=== PATIENT | female | born 1965 | race Caucasian/White ===

== ENCOUNTER 2016-11-19 10:00 | Inpatient (IN) | payer MEDICARE, OTHER ==
--- NOTE | ~2016-11-19 | PN ---
Unit #: [id number] #: [id number] Patient: GRAYSON WHEELER [id number] [facility] [address] [place] [address] [id number] MR#: [id number] NAME: GRAYSON WHEELER. ROOM: P211 Age: 51 Sex: F Admission Date: 11/19/2016 : 1965 Attending Physician: Ivan Ball M.D. Admitting Physician: Ivan Ball M.D. Primary Care Physician: Primary Care Physician Luanne CONTRERAS NOTES DATE 11/21/2016 DISCUSSION The patient continues to complain of significant symptoms of opioid withdrawal complaining that she "vomited up breakfast this morning." She is also complaining of poor sleep but I have spoken with the patient regarding the fact that she slept much of the day yesterday and that this is probably why she slept poorly last evening. Sleep hygiene has been discussed with her. Dictated by... Ivan Ball M.D. CB/linsey TD: 11/21/2016 10:58 JOB #: [id number] LENCHO CONTRERAS NOTES Page 1 of 1 X Ivan Ball MD PROGRESS NOTE
--- NOTE | ~2016-11-19 | PA ---
Unit #: [id number] #: [id number] Patient: GRAYSON WHEELER [id number] [place] [address] [id number] I MR#: [id number] NAME: GRAYSON WHEELER. ROOM: P211 Age: 51 Sex: F Admission Date: 11/19/2016 : 1965 Date of Assessment: 11/20/2016 Attending Physician: Ivan Ball M.D. Admitting Physician: Ivan Ball M.D. Primary Care Physician: Primary Care Physician No PSYCHIATRIC ASSESSMENT IDENTIFYING INFORMATION The patient is a 51-year-old white female admitted with a history of opioid dependence. CHIEF COMPLAINT None given INFORMANT Chart, the patient cannot be aroused for interview. HISTORY OF PRESENT ILLNESS The patient is a 51-year-old white female with a history of opioid dependence. The patient reports that she has been snorting heroin "every 15 minutes for three days." The patient reported that she had not eaten or slept in three days at time of admission. She also admits to cannabis use. The patient was admitted with a COW score of 18 on 11/19. The patient has complained of low energy, hopelessness and helplessness. She was denying any suicidal ideation at the time of admission. The patient today is sleeping soundly and cannot be aroused for interview. PAST PSYCHIATRIC HISTORY None reported. PAST MEDICAL HISTORY The patient recently underwent ankle surgery. MEDICATIONS None. ALLERGIES Penicillin, morphine, tramadol, ibuprofen. FAMILY HISTORY Not obtained. SOCIAL HISTORY The patient's substance use history is described previously. MENTAL STATUS EXAMINATION At this time reveals the patient to be a thin, soundly sleeping white female who cannot be aroused for interview in spite of multiple attempts to do so the patient's assets to be assessed. Liabilities lack of resources. Unit #: [id number] #: [id number] Patient: GRAYSON WHEELER DIAGNOSTIC IMPRESSION 1. Opioid use disorder 2. Cannabis use disorder PSYCHIATRIC PLAN/TREATMENT GOALS The patient remains hospitalized for safety and stabilization. A routine detoxification protocol for opioids has been initiated. The patient will participate in appropriate stern and milieu activities. ESTIMATED LENGTH OF STAY Three to five days with followup to take place through the auspices of [facility]. Dictated by... Ivan Ball M.D. BRUCE/luisal TD: 11/21/2016 01:40 JOB #: [id number] PSYCHIATRIC ASSESSMENT Page 1 of 1 X Ivan Ball MD PSYCHIATRIC ASSESSMENT
--- NOTE | ~2016-11-19 | HP ---
Unit #: [id number] #: [id number] Patient: GRAYSON WHEELER [id number] [place] [address] [id number] I MR#: [id number] NAME: GRAYSON WHEELER. ROOM: P211 Age: 51 Sex: F Admission Date: 11/19/2016 : 1965 Attending Physician: Ivan Ball M.D. Admitting Physician: Ivan Ball M.D. Primary Care Physician: Primary Care Physician No HISTORY AND PHYSICAL HISTORY OF PRESENT ILLNESS The patient is a 51-year-old female admitted to [address] [place] [address] on 11/19/2016 to detox from heroin. PAST MEDICAL HISTORY The patient is hard of hearing and wears a hearing aid. PAST SURGICAL HISTORY 1. Hysterectomy 2. Cholecystectomy 3. Right foot 4. Cochlear implant. SOCIAL HISTORY The patient is disabled. She smokes 1 1/2 packs of cigarettes daily and uses heroin, methamphetamines and spice on a daily basis. FAMILY MEDICAL HISTORY Noncontributory. ALLERGIES Penicillin, morphine, ibuprofen and tramadol REVIEW OF SYSTEMS CONSTITUTIONAL: No fever or chills. HEENT: Denies any sore throat, ear pain or runny nose. CARDIOVASCULAR: Denies chest pain, irregular heart rhythm or palpitations. CHEST: Denies shortness of breath or cough. No hemoptysis. GASTROINTESTINAL: Denies nausea, vomiting, diarrhea or chronic constipation. ENDOCRINE: Denies history of increased thirst or urination. No recent significant weight loss or gain. GENITOURINARY: Denies dysuria, frequency, or hematuria. SKIN: Denies any rashes. HEMATOLOGIC: Denies history of increased bleeding or bruising. MUSCULOSKELETAL: Denies any hot, swollen joints. No generalized muscle pain. NEUROLOGIC: Denies problems with vision or speech. No frequent, severe headaches. No numbness, tingling or weakness in any extremities. Denies loss of bladder or bowel control. PHYSICAL EXAM GENERAL: She is awake, alert and oriented in no acute distress. Unit #: [id number] #: [id number] Patient: GRAYSON WHEELER VITAL SIGNS: Temperature 98.4, heart rate 92, respiration 16, blood pressure 117/78. HEIGHT: 5'11". WEIGHT: 95 pounds. SKIN: Warm and dry without rash or lesion. HEENT: Normocephalic. TMs not viewed. Oral and nasal passages clear. Conjunctivae clear. PERRLA. EOMs intact. NECK: Supple without lymphadenopathy or thyromegaly. HEART: Regular rate and rhythm without murmur. LUNGS: Clear. ABDOMEN: Soft, nontender. : Not done. EXTREMITIES: No evidence of cyanosis, clubbing or edema. Moves all without focal deficit. NEUROLOGICAL: Grossly within normal limits. Cranial Nerves: II: Visual burgos are intact. III, IV AND : Extraocular movements are intact. Pupils are equal, round and reactive to light. V: Facial sensation is grossly normal. VII: Facial movements and expression are normal. VIII: Auditory acuity grossly intact. IX, X: Uvula is midline. Phonation is normal. XI: Patient shrugs shoulders and turns head normally. XII: Tongue protrudes in the midline. Sensory and Motor Function: Sensory and motor sensation is grossly normal. Motor: moves all extremities well. IMPRESSION 1. Psychiatric admission. 2. Hard of hearing. 3. Polysubstance abuse. RECOMMENDATIONS Psychiatric per psychiatrist. MEDICAL: No contraindication to participate in facility activities. MEDICAL PROGNOSIS Good. MEDICAL CONDITION Stable. Dictated by... Gerda Jackson/linsey TD: 11/21/2016 03:42 JOB #: [id number] Unit #: [id number] #: [id number] Patient: GRAYSON WHEELER HISTORY AND PHYSICAL Page 1 of 1 X PENNIE AMADOR APRN HISTORY AND PHYSICAL
--- NOTE | ~2016-11-19 | PN ---
Unit #: [id number] #: [id number] Patient: GRAYSON WHEELER [id number] [facility] [address] [place] [address] [id number] I MR#: [id number] NAME: GRAYSON WHEELER. ROOM: P211 Age: 51 Sex: F Admission Date: 11/19/2016 : 1965 Attending Physician: Ivan Ball M.D. Admitting Physician: Ivan Ball M.D. Primary Care Physician: Primary Care Physician Luanne MUSA PROGRESS NOTES DATE 11/20/2016 DISCUSSION The patient offers no new complaints today. Her detox continues uneventfully and staff reports no management problems though her participation from the therapeutic has been less than optimal. Dictated by... Ivan Ball M.D. CB/linsey TD: 11/21/2016 01:52 JOB #: [id number] LENCHO PROGRESS NOTES Page 1 of 1 X Ivan Ball MD PROGRESS NOTE
--- NOTE | ~2016-11-19 | DS ---
Unit #: [id number] #: [id number] Patient: GRAYSON WHEELER [id number] [facility] [address] [place] [address] [id number] I MR#: [id number] NAME: GRAYSON WHEELER. ROOM: [facility] Age: 51 Sex: F Admission Date: 11/19/2016 : 1965 Discharge Date: 11/22/2016 Attending Physician: Ivan Ball M.D. Primary Care Physician: Primary Care Physician No DISCHARGE SUMMARY REASON FOR ADMISSION The patient is a 51-year-old , white female, admitted to the [address] [place] [address] for opioid detox. HOSPITAL COURSE The patient was admitted to the [address] [place] [address] and placed on routine detoxification protocol for opioids. She was begun on Ensure with meals secondary to her nutritional state. By 11/22/2016, the patient was in brighter spirits. She reported no further symptoms of opioid withdrawal and requested discharge, it was so ordered. FINAL DIAGNOSES Opioid use disorder. DISPOSITION ON DISCHARGE The patient is discharged on no psychotropic or other medications. FOLLOWUP Followup will take place through the auspices of [facility] and the patient will be referred to the chemical dependency intensive outpatient program. PROGNOSIS Her prognosis is considered fair. Dictated by... Ivan Ball M.D. CB/lawrence TD: 11/22/2016 17:16 JOB #: [id number] Unit #: [id number] #: [id number] Patient: GRAYSON WHEELER DISCHARGE SUMMARY Page 1 of 1 X Ivan Ball MD X DISCHARGE SUMMARY
[~2016-11-19 10:00] MED LIST: DURAGESIC TOP; KLONOPIN PO; NORCO 7.5/325 T1 TAB PO; OYSTER CALCIUM500 MG PO; PERCOCET 5-3251 TAB PO; PERCOCET5/325 PO; PRAVACHOL PO; PROZAC PO; WELLBUTRIN
[2016-11-20 11:36] LABS: BASOPHIL# 0.1 X10e3 (0-0.3); BASOPHIL% 1.2 % (0-2.5); EOSINOPHIL# 0.4 X10e3 (0-0.7); EOSINOPHIL% 6.7 % (0.0-7.0); HEMATOCRIT 40.1 % (35.0-45.0); LYMPHOCYTE# 2.3 X10e3 (1.0-3.5); LYMPHOCYTE% 38.8 % (17.0-45.0); MEAN CELL VOLUME 89.3 FL (83-96); MEAN CORPUSCULAR HGB CONC 32.5 g/dL (30-36); MEAN PLATELET VOLUME 9.4 FL (6.5-11.5); MONOCYTE# 0.3 X10e3 (0-1.0); MONOCYTE% 5.6 % (3.0-12.0); NEUTROPHIL# 2.9 X10e3 (1.5-7.1); NEUTROPHIL% 47.7 % (40-75); PLATELET COUNT 239 X10e3 (140-420); RED BLOOD COUNT 4.49 X10e (3.90-5.30); RED CELL DISTRIBUTION WIDTH 12.8 % (11.0-15.5)
[2016-11-20 11:39] LABS: DIFF IND NO
[2016-11-20 11:48] LABS: ALBUMIN SERUM 3.9 g/dL (3.5-5.0); BILIRUBIN,TOTAL 0.6 mg/dL (0.2-2.0); CALCIUM SERUM 9.1 mg/dL (8.4-10.2); CREATININE SERUM 0.5 mg/dL (0.6-1.4); GLOM FILT RATE Estimated 113.7 mL/min (>60); POTASSIUM 4.1 mmol/L (3.5-5.1); PROTEIN TOTAL SERUM 6.5 g/dL (6.0-8.3)
== END 2016-11-22 14:50 | disposition home or self-care (01) | DRG 897 ==
LOC: P2S 14:03
PROVIDERS: Specialist
PROC: HZ2ZZZZ Detoxification Services for Substance Abuse Treatment (ICD-10-PCS; principal; 2016-11-19)
DX: F11.20 Opioid dependence, uncomplicated (principal); F12.20 Cannabis dependence, uncomplicated
CPT/HCPCS: 80053; 85025